=== PATIENT | female | born 1965 | race Asian ===

== ENCOUNTER 2024-05-08 06:27 | Day surgery (SDC) | payer OTHER, SELFPAY ==
[2024-05-08 07:54] LABS: Glucose - Point of Care 98 mg/dl (70-99)
== END 2024-05-08 10:43 | disposition home or self-care (01) ==
LOC: GI 06:27
PROVIDERS: ATTENDING PHYSICIAN Internal Medicine Gastroenterology; FAMILY PHYSICIAN Internal Medicine Adolescent Medicine
DX: Z12.11 Encounter for screening for malignant neoplasm of colon (principal); D12.0 Benign neoplasm of cecum; D12.2 Benign neoplasm of ascending colon; K63.5 Polyp of colon; K55.20 Angiodysplasia of colon without hemorrhage; D50.0 Iron deficiency anemia secondary to blood loss (chronic); K44.9 Diaphragmatic hernia without obstruction or gangrene; Z86.0101 Personal history of adenomatous and serrated colon polyps
CPT/HCPCS: 45385; 43235; 88305; 82962